=== PATIENT | female | born 1980 | race Two or more races ===

== ENCOUNTER 2024-10-24 07:26 | Outpatient (CLI) | payer OTHER | END 2024-10-24 07:33 | disposition home or self-care (01) | LOC: SONOGRAMA 07:26 | PROVIDERS: ATTEND Internal Medicine | DX: E04.2 Nontoxic multinodular goiter (principal) ==

== ENCOUNTER 2025-11-16 07:44 | Outpatient (CLI) | payer OTHER | END 2025-11-16 07:53 | disposition home or self-care (01) | LOC: SONOGRAMA 07:44 | PROVIDERS: ATTEND Obstetrics & Gynecology | DX: E03.9 Hypothyroidism, unspecified (principal) ==